=== PATIENT | male | born 1955 | race Two or more races ===

== ENCOUNTER 2018-01-15 05:37 | Observation (INO) ==
[2018-01-15] MEDS ORDERED: SODIUM PHOSPHATE ENEMA 133 ML BOTTLE RECTAL ONE ×2 (05:50→06:45)
[2018-01-15] MEDS ORDERED: cefTRIAXone 1,000 MG in SYRINGE 1 EACH IV ONE (06:30)
[2018-01-15] MEDS: LACTATED RINGERS 1,000 ML IV SCH (06:30)
[2018-01-15] MEDS ORDERED: ALBUTEROL/IPRATROPIUM 3 ML NEB RESP TX ONE ×2 (06:30→11:56)
[2018-01-15] MEDS ORDERED: ALVIMOPAN 12 MG CAPSULE PO ONE (06:30)
[2018-01-15] MEDS ORDERED: ALVIMOPAN 12 MG CAPSULE ONE (06:45)
[2018-01-15] MEDS ORDERED: cefTRIAXone 1,000 MG VIAL ONE (06:45)
[2018-01-15] MEDS ORDERED: SUGAMMADEX 200 MG/2 ML VIAL IV ONE (10:18)
[2018-01-15] MEDS ORDERED: HYDROmorphone 2 MG/1 ML VIAL ONE (10:23)
[2018-01-15] MEDS ORDERED: ONDANSETRON 4 MG/2 ML VIAL IV PRN ×2 (11:31→12:23)
[2018-01-15] MEDS ORDERED: LACTULOSE 20 GM/30 ML UDCUP PO PRN (11:31)
[2018-01-15] MEDS ORDERED: diphenhydrAMINE 50 MG/1 ML VIAL IV PRN (11:31)
[2018-01-15 11:55] LABS: Apearance,Urine CLEAR (Clear); Bilirubin,Urine Negative (Negative); Blood, Urine Negative (Negative); Glucose,Urine (UA) Negative (Negative); Ketones,Urine Negative (Negative); Mucus,Urine Occasional /LPF (Occasional); Nitrite,Urine Negative (Negative); Protein,Urine Negative; RBC,Urine 1 /HPF (0-4); Squamous Epithelial Cell,Urine Occasional /HPF (0-10); Urine Color Yellow (Yellow); Urine Urobilinogen < 2.0 EU/DL (0.2-1.0); WBC,Urine <1 /HPF (0-6)
[2018-01-15] MEDS ORDERED: SODIUM CHLORIDE 0.9% 1,000 ML IV SCH (12:00)
[2018-01-15] MEDS ORDERED: MORPHINE PCA 30 MG/30 ML SYRINGE IV SCH (12:00)
[2018-01-15] MEDS ORDERED: ALBUTEROL 2.5 MG/3 ML NEB RESP TX ONE (12:01)
[2018-01-15] MEDS ORDERED: PROPOFOL 200 MG/20 ML VIAL IV ONE (12:11)
[2018-01-15] MEDS ORDERED: MIDAZOLAM 2 MG/2 ML VIAL ONE (12:12)
[2018-01-15] MEDS ORDERED: SEVOFLURANE 1 UNIT/15 MINUTE INH ONE (12:12)
[2018-01-15] MEDS ORDERED: DEXAMETHASONE 10 MG/1 ML VIAL ONE (12:12)
[2018-01-15] MEDS ORDERED: ONDANSETRON 4 MG/2 ML VIAL ONE (12:12)
[2018-01-15] MEDS ORDERED: ACETAMINOPHEN 1,000 MG/100 ML VIAL IV ONE (12:12)
[2018-01-15] MEDS ORDERED: ROCURONIUM 100 MG/10 ML VIAL IV ONE (12:12)
[2018-01-15] MEDS ORDERED: LACTATED RINGERS 1,000 ML IV ONE (12:13)
[2018-01-15] MEDS ORDERED: HYDROmorphone 2 MG/1 ML VIAL IV PRN (12:23)
[2018-01-15] MEDS ORDERED: MEPERIDINE 25 MG/1 ML VIAL IV PRN (12:23)
[2018-01-15] MEDS ORDERED: MEPERIDINE 25 MG/1 ML VIAL ONE (12:24)
[2018-01-15] MEDS ORDERED: hydrALAZINE 20 MG/1 ML VIAL ONE (12:50)
[2018-01-15] MEDS ORDERED: hydrALAZINE 20 MG/1 ML VIAL IV ONE (12:53)
[2018-01-15] MEDS: OXYBUTYNIN XL 10 MG TABLET PO SCH (16:51)
[2018-01-15] MEDS ORDERED: ALBUTEROL/IPRATROPIUM 3 ML NEB RESP TX PRN (18:08)
[2018-01-15] MEDS: ALBUTEROL/IPRATROPIUM 3 ML NEB RESP TX SCH (19:14)
[2018-01-15] MEDS: ALVIMOPAN 12 MG CAPSULE PO SCH (21:10)
[2018-01-16 06:57] LABS: Basophils % 0.1 % (0.0-0.8); Hematocrit 36.5 VOL% (42.0-52.0); Immature Granulocytes % 0.5 %; Immature Granulocytes Absolute 0.06 #; Lymphocytes % 7.9 % (21.2-54.2); Mean Corpuscular HGB Conc 32.9 GM/DL (32-36); Mean Corpuscular Hemoglobin 32 PG (27-34); Mean Corpuscular Volume 97.3 FL (87-102); Mean Platelet Volume 10.7 FL (9.6-12.0); Monocytes # 1.7 10*3/uL (0.11-0.8); Monocytes % 13.7 % (1.7-12.7); Neutrophils # 9.8 10*3/uL (1.4-7.4); Neutrophils % 77.8 % (38.7-73.9); Platelet Count 195 T/CUMM (130-400); Red Blood Count 3.75 MC/CUMM (3.8-5.5); Red Cell Distribution Width 11.7 % (9.3-17.3); White Blood Count 12.6 T/CUMM (4-12)
[2018-01-16] MEDS: ALBUTEROL/IPRATROPIUM 3 ML NEB RESP TX SCH ×2 (07:24→19:59)
[2018-01-16 07:29] LABS: Calcium 8.4 MG/DL (8.5-10.1); Potassium 4.2 MMOL/L (3.5-5.1)
[2018-01-16] MEDS ORDERED: oxyCODONE/ACETAMINOPHEN 5-325 MG TABLET PO PRN ×2 (08:09→08:11)
[2018-01-16] MEDS: ALVIMOPAN 12 MG CAPSULE PO SCH ×2 (09:00→20:35)
[2018-01-16] MEDS: amLODIPine 10 MG TABLET PO SCH (09:00)
[2018-01-16] MEDS: OXYBUTYNIN XL 10 MG TABLET PO SCH (09:00)
[2018-01-16] MEDS: PANTOPRAZOLE 40 MG TABLET PO SCH (09:00)
[2018-01-16] MEDS: ATORVASTATIN 10 MG TABLET PO SCH (09:05)
[2018-01-17] MEDS: LACTATED RINGERS 1,000 ML IV SCH (07:05)
[2018-01-17 07:33] VITALS: BP 129/84
[2018-01-17] MEDS: ALBUTEROL/IPRATROPIUM 3 ML NEB RESP TX SCH (07:49)
[2018-01-17] MEDS: amLODIPine 10 MG TABLET PO SCH (09:44)
[2018-01-17] MEDS: ATORVASTATIN 10 MG TABLET PO SCH (09:44)
[2018-01-17] MEDS: PANTOPRAZOLE 40 MG TABLET PO SCH (09:44)
[2018-01-17] MEDS: ALVIMOPAN 12 MG CAPSULE PO SCH (09:44)
[2018-01-17] MEDS: OXYBUTYNIN XL 10 MG TABLET PO SCH (09:44)
== END 2018-01-17 10:30 | disposition home or self-care (01) ==
LOC: N.OR 05:37 → N.SDSINP 05:37 → N.5E 13:23
PROVIDERS: ADMIT Urology; ATTEND Urology